=== PATIENT | male | born 1955 ===

== ENCOUNTER 2021-02-15 10:57 | Emergency (ER) | payer OTHER, MEDICARE, SELFPAY ==
--- NOTE | ~2021-02-15 | CT_ITS ---
EXAMINATION: HEAD CT WITHOUT CONTRAST CERVICAL SPINE CT WITHOUT CONTRAST CLINICAL INFORMATION: Fall. COMPARISON: CT head 02/22/2015. TECHNIQUE: Contiguous axial imaging of the head was performed without the administration of IV contrast. Axial multidetector volumetric images were also performed through the cervical spine without contrast. Multiplanar reconstructed images in coronal and sagittal orientations were submitted. DOSE: 1330 mGy-cm for the head CT. 530 mGy-cm for the cervical spine. FINDINGS: HEAD: There is no evidence of acute intracranial hemorrhage or territorial infarction. No abnormal mass-effect or midline shift. No extra-axial fluid collections. Kenny to white matter differentiation is well preserved. Mild cerebral volume loss. Mild periventricular and deep white matter hypodensities most suggestive of chronic microangiopathic changes. No acute calvarial fracture. Right maxillary sinus mucosal thickening and fluid. Right ethmoid sinus because of thickening. Remainder of the paranasal sinuses and mastoid air cells are well aerated. The sinuses and mastoid air cells are clear. CERVICAL SPINE: Motion artifact degrading images, limiting evaluation. In particular, the upper cervical spine is degraded by motion artifact, markedly limiting evaluation. Vertebral body heights are grossly maintained. In the nonobscured [id number] cervical spine, no acute fractures are seen. Vertebral alignment is normal. No subluxation. The craniocervical and atlantoaxial articulations are grossly maintained. Intervertebral disc heights are relatively maintained. Mild cervical spondylosis. No significant paravertebral soft tissue swelling. No suspicious thyroid findings. Imaged portions of the lung apices are clear. CT/CT head/brain wo con IMPRESSION: CT HEAD: 1. No CT evidence acute intracranial pathology. 2. Right maxillary and sphenoid sinus disease.. CT SPINE: 1. Marked motion artifact degrading the upper cervical spine, limiting evaluation. Repeat CT scan as clinically warranted. 2. No acute fracture or is seen in the [id number] cervical spine.
--- NOTE | ~2021-02-15 | CT_ITS ---
EXAMINATION: HEAD CT WITHOUT CONTRAST CERVICAL SPINE CT WITHOUT CONTRAST CLINICAL INFORMATION: Fall. COMPARISON: CT head 02/22/2015. TECHNIQUE: Contiguous axial imaging of the head was performed without the administration of IV contrast. Axial multidetector volumetric images were also performed through the cervical spine without contrast. Multiplanar reconstructed images in coronal and sagittal orientations were submitted. DOSE: 1330 mGy-cm for the head CT. 530 mGy-cm for the cervical spine. FINDINGS: HEAD: There is no evidence of acute intracranial hemorrhage or territorial infarction. No abnormal mass-effect or midline shift. No extra-axial fluid collections. Kenny to white matter differentiation is well preserved. Mild cerebral volume loss. Mild periventricular and deep white matter hypodensities most suggestive of chronic microangiopathic changes. No acute calvarial fracture. Right maxillary sinus mucosal thickening and fluid. Right ethmoid sinus because of thickening. Remainder of the paranasal sinuses and mastoid air cells are well aerated. The sinuses and mastoid air cells are clear. CERVICAL SPINE: Motion artifact degrading images, limiting evaluation. In particular, the upper cervical spine is degraded by motion artifact, markedly limiting evaluation. Vertebral body heights are grossly maintained. In the nonobscured [id number] cervical spine, no acute fractures are seen. Vertebral alignment is normal. No subluxation. The craniocervical and atlantoaxial articulations are grossly maintained. Intervertebral disc heights are relatively maintained. Mild cervical spondylosis. No significant paravertebral soft tissue swelling. No suspicious thyroid findings. Imaged portions of the lung apices are clear. CT/CT cervical spine wo con IMPRESSION: CT HEAD: 1. No CT evidence acute intracranial pathology. 2. Right maxillary and sphenoid sinus disease.. CT SPINE: 1. Marked motion artifact degrading the upper cervical spine, limiting evaluation. Repeat CT scan as clinically warranted. 2. No acute fracture or is seen in the [id number] cervical spine.
--- NOTE | ~2021-02-15 | XR_ITS ---
EXAMINATION: XR CHEST CLINICAL INFORMATION: Fall COMPARISON: None TECHNIQUE: AP portable view of the chest was obtained. FINDINGS: There is no evidence of acute parenchymal disease, pneumothorax, or pleural effusion. Heart normal size. No evidence of pulmonary edema. There is degenerative change of the right shoulder with question old fracture calcific tendinitis. XR/XR chest 1V IMPRESSION: No acute disease.
[2021-02-15 11:09] VITALS: BP 128/81; PULSE 67; RESP 18; TEMP 36.4; O2SAT 98; BMI 27.2
--- NOTE | 2021-02-15 11:09 | ECG_ITS ---
Test Reason : FALL Blood Pressure : / mmHG Vent. Rate : 080 BPM Atrial Rate : 080 BPM P-R Int : 158 ms QRS Dur : 078 ms QT Int : 412 ms P-R-T Axes : 062 077 066 degrees QTc Int : 475 ms Normal sinus rhythm Low voltage QRS Borderline ECG No previous ECGs available Referred By: Tracy Garza Electronically Signed By:NICOLE CORONADO
--- NOTE | 2021-02-15 11:09 | ED.FALL ---
HPI - Fall General Chief Complaint: Fall Stated Complaint: FALL Time Seen by Provider: 02/15/21 11:07 Source: patient and EMS Mode of arrival: EMS Limitations: altered mental status (+ ETOH) History of Present Illness HPI Narrative: 66 yo male with HTN, HPL - EMS called for a fall unknown downtime no known AC therapy, laceration to forehead, looks as if he fell forward and hit table per EMS MD complaint: fall Onset (ago): unknown Fall from: chair Fall witnessed: no Place fall occurred: home Loss of consciousness: unsure Prolonged down time: unclear Symptoms prior to fall: none Context: alcohol use Location of injury: head Severity: mild Associated symptoms (after fall): denies Related Data Allergies Allergy/AdvReac Type Severity Reaction Status Date / Time No Known Allergies Allergy Verified 02/15/21 11:08 Review of Systems Review of Systems: ROS unable to be obtained due to altered mental status PMFSH Past Medical History Attestation statement: The following information was validated with the patient. Medical History HTN (hypertension) Hyperlipidemia Social History Social History (Updated 02/15/21 @ 12:02 by Tracy Garza DO) Alcohol intake: current Smoking Status: Smoker, status unknown Advance Directives: No Advance Directives Information Provided: No Physical Exam Vital Signs: Vital Signs: Last Vital Signs Temp 97.5 F 02/15/21 11:09 Pulse 67 02/15/21 11:09 Resp 18 02/15/21 11:09 BP 128/81 02/15/21 11:09 Pulse Ox 98 02/15/21 11:09 Body Mass Index 27.2 Appearance: ETOH odor, slurred speech, oriented to self Mild acute distress. Eyes: Pupils equal, round and reactive to light. ENT: Pharynx normal. superficial linear laceration 1cm to left forehead bleeding controlled Neck: Normal inspection. Neck supple. CVS: Normal heart rate and rhythm. Pulses normal. Respiratory: No respiratory distress. Breath sounds normal. Abdomen: Soft and nontender. Skin: Skin warm and dry. Normal skin color. Normal skin turgor. Extremities: No lower extremity edema. No calf ttp no pain with ROM of all extremities Neuro: Oriented X 3. No motor deficit. No sensory deficit. Course Course Course Narrative: patient now awake will continue to observe until the patient is more clinically sober WC bound will book van alert and oriented x 3, GCS 15 clinically sober Procedures Laceration Laceration 1: Site: face Side (If applicable): left Size (cm): 1 Description: linear Depth: simple, single layer Pre-repair: wound explored and irrigated extensively Skin layer closed with: other (dermabond) MDM - Fall MDM Narrative Medical decision making narrative: 66 yo male with HTN, HPL, ETOH abuse no known AC therapy, lac repaired with dermabond, labs, EKG, CT scan of head/neck for trauma, dispo per results and findings. Lab Data Result diagrams: 02/15/21 11:55 02/15/21 11:55 Labs: Lab Results 02/15/21 02/15/21 02/15/21 Range/Units 11:55 11:55 11:55 WBC 10.1 (4.8-10.8) X10*3/uL RBC 4.38 L (4.60-5.80) X10*6/uL Hgb 14.3 (14.0-18.0) g/dl Hct 43.7 (42-52) % MCV 99.8 H (80-98) fL MCH 32.6 (27.0-33.0) pg MCHC 32.7 (31.0-36.0) g/dl RDW 14.0 (11.0-16.0) % Plt Count 315 (160-400) X10*3/uL MPV 8.6 L (9.4-12.4) fL Immature Gran % (Auto) 0.6 H (0.0-0.4) % Neut % (Auto) 63.2 (45-73) % Lymph % (Auto) 26.8 (20-40) % [place] % (Auto) 6.8 (2-11) % Eos % (Auto) 1.8 (0-4) % Baso % (Auto) 0.8 (0-2) % Lymph # (Auto) 2.7 (1.2-4.9) X10*3/uL [place] # (Auto) 0.7 (0.1-1.2) X10*3/uL Eos # (Auto) 0.2 (0.0-0.4) X10*3/uL Baso # (Auto) 0.1 (0.0-0.2) X10*3/uL Abs Immat Gran (auto) 0.06 H (0.00-0.03) X10*3/uL Absolute Neuts (auto) 6.4 (2.0-8.3) X10*3/uL Absolute Nucleated RBC 0.000 (0.0-0.012) X10*3/uL Nucleated RBC % (auto) 0.0 (0.0-0.2) /100WBC PT 11.7 (10.8-13.0) SEC INR 1.0 (0.9-1.1) APTT 34.0 (24.1-38.0) SEC Sodium 146 H (135-145) mmol/L Potassium 5.1 (3.3-5.1) mmol/L Chloride 112 H (96-108) mmol/L Carbon Dioxide 21 L (22-29) mmol/L Anion Gap 18 (12-20) BUN 13 (9-16) mg/dL Creatinine 0.60 (0.5-1.4) mg/dL Estim Creat Clear Calc 132.9 Estimated GFR > 60 Random Glucose 88 (60-115) mg/dL Calcium 8.5 (8.4-10.2) mg/dL Magnesium 2.4 (1.6-2.6) mg/dL Total Bilirubin 0.2 (0.0-1.0) mg/dL Direct Bilirubin < 0.2 (0.0-0.5) mg/dL AST 26 (5-37) U/L ALT 29 (0-40) U/L Alkaline Phosphatase 83 (39-117) U/L Total Creatine Kinase 134 (38-174) U/L Total Protein 7.1 (6.5-8.0) g/dL Albumin 3.9 (3.5-5.0) g/dL Ethyl Alcohol mg/dL 02/15/21 Range/Units 11:55 WBC (4.8-10.8) X10*3/uL RBC (4.60-5.80) X10*6/uL Hgb (14.0-18.0) g/dl Hct (42-52) % MCV (80-98) fL MCH (27.0-33.0) pg MCHC (31.0-36.0) g/dl RDW (11.0-16.0) % Plt Count (160-400) X10*3/uL MPV (9.4-12.4) fL Immature Gran % (Auto) (0.0-0.4) % Neut % (Auto) (45-73) % Lymph % (Auto) (20-40) % [place] % (Auto) (2-11) % Eos % (Auto) (0-4) % Baso % (Auto) (0-2) % Lymph # (Auto) (1.2-4.9) X10*3/uL [place] # (Auto) (0.1-1.2) X10*3/uL Eos # (Auto) (0.0-0.4) X10*3/uL Baso # (Auto) (0.0-0.2) X10*3/uL Abs Immat Gran (auto) (0.00-0.03) X10*3/uL Absolute Neuts (auto) (2.0-8.3) X10*3/uL Absolute Nucleated RBC (0.0-0.012) X10*3/uL Nucleated RBC % (auto) (0.0-0.2) /100WBC PT (10.8-13.0) SEC INR (0.9-1.1) APTT (24.1-38.0) SEC Sodium (135-145) mmol/L Potassium (3.3-5.1) mmol/L Chloride (96-108) mmol/L Carbon Dioxide (22-29) mmol/L Anion Gap (12-20) BUN (9-16) mg/dL Creatinine (0.5-1.4) mg/dL Estim Creat Clear Calc Estimated GFR Random Glucose (60-115) mg/dL Calcium (8.4-10.2) mg/dL Magnesium (1.6-2.6) mg/dL Total Bilirubin (0.0-1.0) mg/dL Direct Bilirubin (0.0-0.5) mg/dL AST (5-37) U/L ALT (0-40) U/L Alkaline Phosphatase (39-117) U/L Total Creatine Kinase (38-174) U/L Total Protein (6.5-8.0) g/dL Albumin (3.5-5.0) g/dL Ethyl Alcohol 249 mg/dL ECG Data Attestation: I personally reviewed and interpreted this ECG as follows: ECG interpretation date: 02/15/21 ECG interpretation time: 11:42 Interpretation: Rate: 80 Rhythm: NSR [place]: normal Normal P waves. Normal FRANCISCO. Normal QRS complex. ST T wave : normal , no JOEL qTC: normal prior studies: no acute ischemia The study has been interpreted contemporaneously by me. . Discharge Plan Discharge Clinical Impression: Facial laceration Qualifiers: Encounter type: initial encounter Qualified Code(s): S01.81XA - Laceration without foreign body of other part of head, initial encounter Fall Qualifiers: Encounter type: initial encounter Qualified Code(s): W19.XXXA - Unspecified fall, initial encounter Alcohol intoxication Qualifiers: Complication of substance-induced condition: uncomplicated Qualified Code(s): F10.920 - Alcohol use, unspecified with intoxication, uncomplicated Patient Disposition: Home, Self-Care Instructions: Abuse of Alcohol (ED), Facial Laceration (ED) Additional Instructions: return to ED for any worsening symptoms or concerns dermabond will fall off on its own in 7 days, it is okay to shower only Referrals: Physician,Unknown [Primary Care Provider] - 2 days (as needed)
[2021-02-15 12:01] LABS: MANUAL DIFF FLAG NO
[2021-02-15 12:10] LABS: Prothrombin Time 11.7 SEC (10.8-13.0)
[2021-02-15 12:18] LABS: Basophils Absolute Auto 0.1 X10*3/uL (0.0-0.2); Basophils Percent Auto 0.8 % (0-2); Eosinophils Absolute Auto 0.2 X10*3/uL (0.0-0.4); Eosinophils Percent Auto 1.8 % (0-4); Hematocrit 43.7 % (42-52); Hemoglobin 14.3 g/dl (14.0-18.0); Imm Gran Abs Auto 0.06 X10*3/uL (0.00-0.03); Imm Gran Pct Auto 0.6 % (0.0-0.4); Lymphocytes Absolute Auto 2.7 X10*3/uL (1.2-4.9); Lymphocytes Percent Auto 26.8 % (20-40); Mean Corpuscular HGB Conc 32.7 g/dl (31.0-36.0); Mean Corpuscular Hemoglobin 32.6 pg (27.0-33.0); Mean Corpuscular Volume 99.8 fL (80-98); Mean Platelet Volume 8.6 fL (9.4-12.4); Monocytes Absolute Auto 0.7 X10*3/uL (0.1-1.2); Monocytes Percent Auto 6.8 % (2-11); Neutrophils Absolute Auto 6.4 X10*3/uL (2.0-8.3); Neutrophils Percent Auto 63.2 % (45-73); Platelet Count 315 X10*3/uL (160-400); Red Blood Count 4.38 X10*6/uL (4.60-5.80); White Blood Count 10.1 X10*3/uL (4.8-10.8)
[2021-02-15 12:32] LABS: Ethanol 249 mg/dL
[2021-02-15 12:35] LABS: Alanine Aminotransferase 29 U/L (0-40); Albumin Level 3.9 g/dL (3.5-5.0); Alkaline Phosphatase 83 U/L (39-117); Anion Gap 18 (12-20); Aspartate Amino Transferase 26 U/L (5-37); Bilirubin Direct < 0.2 mg/dL (0.0-0.5); Bilirubin Total 0.2 mg/dL (0.0-1.0); Blood Urea Nitrogen 13 mg/dL (9-16); Calcium 8.5 mg/dL (8.4-10.2); Carbon Dioxide 21 mmol/L (22-29); Chloride 112 mmol/L (96-108); Creatinine Clr Calc Pharmacy 132.9; Estimated Glomerular Filt Rate > 60; Glucose Random 88 mg/dL (60-115); Magnesium 2.4 mg/dL (1.6-2.6); Potassium 5.1 mmol/L (3.3-5.1); Sodium 146 mmol/L (135-145); Total Protein 7.1 g/dL (6.5-8.0)
--- NOTE | 2021-02-15 16:17 | PC.NURSE ---
PT WAS INCONTINENT OF LARGE AMOUNTS OF URINE. HE WAS CHANGED INTO DRY CLOTHES FOR ANTICIPATED DISCHARGE HOME. HE IS SITTING UP TOLERATING PO FLUIDS AND FOOD. ABLE TO AMBULATED SHORT DISTANCES
== END 2021-02-15 17:34 | disposition home or self-care (01) ==
PROVIDERS: Emergency Provider Emergency Medicine
DX: F10.120 Alcohol abuse with intoxication, uncomplicated (principal); Y90.8 Blood alcohol level of 240 mg/100 ml or more; S01.81XA Laceration without foreign body of other part of head, initial encounter; W07.XXXA Fall from chair, initial encounter; I10 Essential (primary) hypertension; E78.5 Hyperlipidemia, unspecified; Y93.9 Activity, unspecified; Y92.019 Unspecified place in single-family (private) house as the place of occurrence of the external cause; Y99.9 Unspecified external cause status
CPT/HCPCS: 12011; 36415; 70450; 71045; 72125; 80048; 80076; 80320; 82550; 83735; 85025; 85610; 85730; 93005; 99283; 99284